=== PATIENT | male | born 1955 | race Caucasian/White ===

== ENCOUNTER 2016-10-04 08:17 | Outpatient (CLI) | payer BC ==
[~2016-10-04] VITALS: Ht 198.1 cm; Wt 88.9 kg
[~2016-10-04 08:17] MED LIST: CIPR500T78 PO; OXYC-465 PO; TMSL.4C PO
[2016-10-04] MEDS ORDERED: MAGN400T39 PO (08:33)
[2016-10-04] MEDS ORDERED: FINA5TAB6 PO (08:33)
[2016-10-04] MEDS ORDERED: IRON1TAB86 PO (08:33)
[2016-10-04] MEDS ORDERED: TURM500C4 PO (08:33)
[2016-10-04] MEDS ORDERED: ALFU10TA11 PO (08:33)
[2016-10-04] MEDS ORDERED: CYAN50008 PO (08:33)
[2016-10-04] MEDS ORDERED: OMEG-109 PO (08:33)
[2016-10-04 08:37] VITALS: BP 117/80
== END 2016-10-04 09:44 | disposition home or self-care (01) ==
LOC: PREOP 08:17
PROVIDERS: ATTEND Surgery
DX: Z01.818 Encounter for other preprocedural examination (principal); Z11.2 Encounter for screening for other bacterial diseases; K40.90 Unilateral inguinal hernia, without obstruction or gangrene, not specified as recurrent
CPT/HCPCS: 87081

== ENCOUNTER 2016-10-09 07:33 | Day surgery (SDC) | payer BC ==
[~2016-10-09] VITALS: Ht 193 cm; Wt 88.9 kg
[2016-10-09 07:33] VITALS: BP 122/87
[~2016-10-09 07:33] MED LIST changes: +ALFU10TA11 PO; +CYAN50008 PO; +FINA5TAB6 PO; +IRON1TAB86 PO; +MAGN400T39 PO; +OMEG-109 PO; +TURM500C4 PO
[2016-10-09] MEDS ORDERED: CATHETER FLUSH 10 ML SYR IV PRN (07:45)
[2016-10-09] MEDS ORDERED: ceFAZolin 2 GM/NS 50 ML IV ONE (07:45)
[2016-10-09] MEDS ORDERED: LIDOCAINE/EPI 1%-1:200,000 (XYLOCAINE) 30 ML VIAL ONE (08:07)
[2016-10-09] MEDS: LACTATED RINGERS 1,000 ML IV PRN ×2 (08:23→10:00)
[2016-10-09] MEDS ORDERED: DEXAMETHASONE PF 10 MG/ML (DECADRON) VIAL ONE (09:05)
[2016-10-09] MEDS ORDERED: proPOfol 200 MG/20 ML (DIPRIVAN) VIAL IV ONE (09:05)
[2016-10-09] MEDS ORDERED: HURRICAINE EXT TUBE (BENZOCAINE) ONE (09:05)
[2016-10-09] MEDS ORDERED: MIDAZOLAM 2 MG/2 ML (VERSED) VIAL ONE (09:05)
[2016-10-09] MEDS ORDERED: fentaNYL INJECTION 100 MCG/2 ML AMP ONE (09:05)
[2016-10-09] MEDS ORDERED: SEVOFLURANE (ULTANE) 15 ML INHAL SOLN ONE ×4 (09:05→10:08)
[2016-10-09] MEDS ORDERED: LIDOCAINE PF 2% 5 ML (XYLOCAINE) VIAL ONE (09:05)
[2016-10-09] MEDS ORDERED: LACTATED RINGERS 1,000 ML IV ONE ×2 (09:05→10:08)
[2016-10-09] MEDS ORDERED: ATRACURIUM 50 MG/5 ML (TRACRIUM) IV ONE (09:09)
--- NOTE | 2016-10-09 09:19 | Progress Note-Pre Operative ---
Pre-Operative Progress Note H&P Reviewed The H&P was reviewed, patient examined and no changes noted. Time Seen by Provider: 09:11 Date H&P Reviewed: Oct 09, 2016 Time H&P Reviewed: 09:14 Pre-Operative Diagnosis: MO RIVERS DO Oct 09, 2016 09:19
--- NOTE | 2016-10-09 10:07 | Progress Note-Post Operative ---
Post-Operative Progess Note Surgeon (s)/Laboratory Aide (s) Surgeon MO LAZCANO DO Laboratory Aide: Max Pre-Operative Diagnosis RIH- incarcerated Post-Operative Diagnosis Same - indirect Procedure & Operative Findings Date of Procedure 10/09/16 Procedure Performed/Findings RIH with mesh Anesthesia Type LMA Estimated Blood Loss Estimated blood loss (mL): scant Specimens/Packing Specimens Removed hernia sac MO LAZCANO DO Oct 09, 2016 10:07
[2016-10-09] MEDS ORDERED: HYDR-3812 PO (10:08)
--- NOTE | 2016-10-09 10:11 | Discharge Inst-Surgical ---
Discharge Inst-Surgical Depart Medication/Instructions New, Converted or Re-Newed RX: RX Given to Pt/Family Patient Instructions Follow up Appt: Make appointment for 1 week. [phone] Instructions: No lifting greater than 10 pounds. No strenuous activity. May shower in 24 hours, no tub bath or soaking. Use incentive spirometer at home as directed. No Smoking Skin/Wound Care: May remove band-aids. You need to leave the Dermabond on it will fall off on its own. Symptoms to Report: Appetite Changes, Extremity Discoloration, Numbness/Tingling, Swelling Increased , Bleeding Excessive, Eyesight Changes, Pain Increased, Urine Color Change, Constipation(Persistent), Fever over 101 degree F, Pain/Pressure in chest, Urinating Difficulty, Cough Up/Vomit Blood, Heart Beat -Irreg/Pounding, Pain/ Pressure in jaw, Vaginal Bleeding Increase, Cramps in feet or legs, Lightheadedness, Pain/Pressure in shoulder, Diarrhea(Persistent), Memory Changes Suddenly, Questions/Concerns, Weight gain consecutive days, Dizziness/ Fainting, Nausea/Vomiting, Shortness of Breath, Weight gain over 2 pounds If questions or concerns contact your physician Or seek help at emergency department. Activity Activity as Tolerated: Yes Activity Instructions: Avoid Pulling & Pushing, Avoid Stress to Incision Driving Instructions: No Driving/Refer to Dr. Ortiz Discharge Diet: No Restrictions Diet After 24 Hours: Clear Liquid if Nauseous If Any Problems/Questions/Issu: Contact Your Physician, Go to Emergency Room Skin/Wound Care Infection Signs and Symptoms: Increased Redness, Foul Odor of Wound, Increased Drainage, Skin Itchy or Has a Rash, Increased Swelling, Temperature Above 101 F Bathing Instructions: Shower Stitches/Ryan/Dermabond Dis: Dermabond Ice Pack: Ice On and Off Site MO LAZCANO DO Oct 09, 2016 10:11
[2016-10-09] MEDS ORDERED: fentaNYL INJECTION 100 MCG/2 ML AMP IVP PRN (10:30)
[2016-10-09] MEDS ORDERED: morphine INJ 10 MG/ML 1ML (SYR OR VIAL) IVP PRN (10:30)
[2016-10-09 11:05] VITALS: BP 126/84
[2016-10-09] MEDS ORDERED: HYDROcodone/APAP 5 MG/325 MG (LORTAB) TAB PO PRN (11:45)
[2016-10-09 11:50] VITALS: BP 125/77
[2016-10-09] MEDS ORDERED: HYDROcodone/APAP 5 MG/325 MG (LORTAB) TAB PO ONE (12:00)
[2016-10-09 12:30] VITALS: BP 131/78
--- NOTE | 2016-10-10 18:14 | OPERATIVE REPORT ---
DATE OF SERVICE: 10/09/2016 PREOPERATIVE DIAGNOSIS: Incarcerated right inguinal hernia. POSTOPERATIVE DIAGNOSIS: Incarcerated right inguinal hernia with indirect. PROCEDURE: Radiant inguinal herniorrhaphy with mesh placement. SURGEON: Drew Brian DO. TELEGRAPH EDITOR: Tereso Santana DO. ANESTHESIA: LMA by CONSTRUCTION ADMINISTRATOR with approximately 30 mL of local injected by myself. SPECIMEN: Hernia sac. BLOOD LOSS: Scant. FLUIDS: Per anesthesia. POSTOPERATIVE CONDITION: Stable. INDICATION FOR PROCEDURE: The patient is a 61-year-old male with pain in the right inguinal region, diagnosis of incarcerated right inguinal hernia. FINDINGS: The patient has indirect incarcerated right inguinal hernia. PROCEDURE NOTE: After informed consent was obtained, the patient was brought to the operating room, placed on the operating table in supine position, sterilely prepped and draped in normal fashion. Local lidocaine was used to perform an ilioinguinal nerve block as well as pubic tubercle block and then infiltrated the right inguinal region with local and then made an incision with a #15 blade, carried down to skin into subcutaneous tissue, then deepened down to subcutaneous tissue with Bovie electrocautery down to the fascia of the external oblique. External oblique fascia then infiltrated with local, then incised with an external inguinal ring with Bovie electrocautery, able to grasp the 2 sides of the external oblique fascia with hemostats and then dissected under this bluntly to create space and then able to grasp the cord and cord structures and get under them at the pubic tubercle and placed a [place] drain in the inferolateral direction. I then start looking superiorly and medially and found the incarcerated inguinal hernia sac. Able to carefully peel this off the cord and cord structures with blunt dissection as well as Bovie electrocautery. Once it was completely freed up, then suture ligated with a 2-0 Vicryl suture, then cut the hernia sac, passed off table once the stump retracted in the abdomen. At this point, then elected to place a right-sided Parietex mesh, trimmed this to fit into the canal, sutured once with a 2 0 Vicryl at the pubic tubercle, placed rest of the mesh up under the external oblique fascia encircling the cord to recreate the internal inguinal ring, laid down nicely, copiously irrigated with normal saline and suctioned this out. Then, closed the external oblique fascia with 3-0 Vicryl, thereby recreating the external inguinal ring. I then closed the [place]'s fascia with 3-0 Vicryl, 2 interrupted sutures. Then, closed the skin with 4-0 undyed Monocryl in a running subcuticular fashion. Area was cleaned and dried and Dermabond placed and the patient then transferred to recovery room in stable condition. Sponge, instrument and needle count correct at the end of the case. Job ID: [id number] DocumentID: [id number] Dictated Date: 10/09/2016 10:34:09 Suction Operator Date: 10/10/2016 04:26:04 Dictated By: DREW BRIAN DO
== END 2016-10-09 12:30 | disposition home or self-care (01) ==
LOC: SDC 07:33
PROVIDERS: ATTEND Surgery
DX: K40.30 Unilateral inguinal hernia, with obstruction, without gangrene, not specified as recurrent (principal)
CPT/HCPCS: 94664